=== PATIENT | male | born 1960 | race Caucasian/White ===

== ENCOUNTER 2017-03-05 04:02 | Emergency (ER) | payer SELFPAY ==
[~2017-03-05] VITALS: Ht 165.1 cm; Wt 79.0 kg
[~2017-03-05 04:02] MED LIST: ALBU1AER INH; OXYC-360 PO
[2017-03-05 04:10] VITALS: BP_SYST 100; BP_SYST 87; BP_DIAS 53; BP_DIAS 59; PULSE 103; PULSE 77; RESP 16; TEMP 98.8; O2SAT 93
[2017-03-05] MEDS ORDERED: SODIUM CHLOR 0.9% 1000 ML INJ 1,000 ML IV SCH (04:28)
[2017-03-05 04:30] VITALS: BP 103/64; PULSE 75; RESP 16
[2017-03-05] MEDS ORDERED: DICYCLOMINE HCL 20 MG/2 ML VIAL IM ONE (04:30)
[2017-03-05] MEDS ORDERED: ONDANSETRON HCL 4 MG/2 ML VIAL IVP ONE (04:30)
[2017-03-05] MEDS ORDERED: SODIUM CHLORIDE 0.9% FLUSH 10 ML FLUSH IV FLUSH PRN (04:30)
[2017-03-05 04:38] LABS: AUTOMATED NEUTROPHIL # 15.4 TH/MM3 (1.8-7.7); BASOPHIL # 0.3 TH/MM3 (0-0.2); BASOPHIL % 1.7 % (0.0-2.0); EOSINOPHIL # 0.1 TH/MM3 (0-0.4); EOSINOPHIL % 0.4 % (0.0-4.0); LYMPH % 9.4 % (9.0-44.0); LYMPHOCYTE # 1.8 TH/MM3 (1.0-4.8); MEAN CORPUSCULAR HEMOGLOBIN 28.7 PG (27.0-34.0); MEAN CORPUSCULAR HGB CONC 32.6 % (32.0-36.0); MONO % 9.4 % (0.0-8.0); NEUT % 79.1 % (16.0-70.0); PLATELET COUNT 225 TH/MM3 (150-450); RED BLOOD COUNT 5.34 MIL/MM3 (4.50-5.90); RED CELL DISTRIBUTION WIDTH 13.2 % (11.6-17.2); WHITE BLOOD COUNT 19.4 TH/MM3 (4.0-11.0)
[2017-03-05 04:39] LABS: HEMO FLAGS AUTO DIFF
[2017-03-05 04:47] LABS: CHLORIDE 108 MEQ/L (98-107); POTASSIUM 4.1 MEQ/L (3.5-5.1); SODIUM (NA) 141 MEQ/L (136-145)
[2017-03-05 04:51] LABS: ANION GAP 9 MEQ/L (5-15); BICARBONATE 24.2 MEQ/L (21.0-32.0); BLOOD UREA NITROGEN 15 MG/DL (7-18)
[2017-03-05 04:54] LABS: ALT (GPT) 33 U/L (12-78); AST (GOT) 17 U/L (15-37); GLOMERULAR FILTRATION RATE 69 ML/MIN (>89)
[2017-03-05 04:55] LABS: TOTAL BILIRUBIN ADULT 1.1 MG/DL (0.2-1.0)
[2017-03-05 04:56] LABS: BANDS 5 % (0-6); NEUTROPHIL # MANUAL DIFF 15.7 TH/MM3 (1.8-7.7); PLATELET ESTIMATE SMEAR NORMAL (NORMAL); PLATELET MORPHOLOGY NORMAL (NORMAL); POLYS (SEG NEUTROPHILS) 76 % (16-70); SCAN/DIFF FINAL DIFF MANUAL; WBC DIFF SAMPLE 100
[2017-03-05 04:57] LABS: ALKALINE PHOSPHATASE 92 U/L (45-117)
--- NOTE | 2017-03-05 04:58 | PD ---
HPI Chief Complaint: Abdominal Pain Time Seen by Provider: 04:17 Travel History International Travel<30 days: No Contact w/Intl Traveler<30days: No Traveled to known affect area: No History of Present Illness HPI Patient is a 57-year-old male with a history of pancreatitis presents emergency department with left upper quadrant abdominal pain for the past few days. Patient states been gradually worsening. He states they were on the boat the other day and he had some diarrhea which is nonbloody and non-melena's. States today's been having some nausea without vomiting, no fevers but did have some cold sweats. States she's never had pain like this before. No previous colonoscopy. Denies any dysuria, denies any groin swelling. He took some ibuprofen prior to arrival and his pain is subsiding. [facility] Past Medical History Asthma: Yes ?: Not Past Surgical History Other Surgery: Yes (HEERNIA REPAIR A CHILD) Social History Alcohol Use: Yes ([facility]) Tobacco Use: No Substance Use: No Allergies-Medications (Allergen,Severity, Reaction): Coded Allergies: No Known Allergies (Verified , 01/30/11) Reported Meds & Prescriptions Reported Meds & Active Scripts Active Zofran Odt (Ondansetron Odt) 4 Mg Tab 4 Mg SL Q6HR PRN Bentyl (Dicyclomine HCl) 10 Mg Cap 10 Mg PO QID PRN Flagyl (Metronidazole) 500 Mg Tab 500 Mg PO BID 7 Days Cipro (Ciprofloxacin HCl) 500 Mg Tab 500 Mg PO BID 7 Days Review of Systems Except as stated in HPI: all other systems reviewed are Neg Physical Exam Narrative GENERAL: Well-developed well-nourished no apparent distress. SKIN: Focused skin assessment warm/dry. HEAD: Atraumatic. Normocephalic. EYES: Pupils equal and round. No scleral icterus. No injection or drainage. ENT: No nasal bleeding or discharge. Mucous membranes pink and moist. NECK: Trachea midline. No JVD. CARDIOVASCULAR: Regular rate and rhythm. No murmur appreciated. RESPIRATORY: No accessory muscle use. Clear to auscultation. Breath sounds equal bilaterally. GASTROINTESTINAL: Abdomen soft, non-tender, nondistended. Hepatic and splenic margins not palpable. MUSCULOSKELETAL: No obvious deformities. No clubbing. No cyanosis. No edema. NEUROLOGICAL: Awake and alert. No obvious cranial nerve deficits. Motor grossly within normal limits. Normal speech. PSYCHIATRIC: Appropriate mood and affect; insight and judgment normal. Data Data Last Documented VS Vital Signs Date Time Temp Pulse Resp B/P Pulse Ox O2 Delivery O2 Flow Rate FiO2 03/05/17 06:26 87 16 98/54 99 03/05/17 04:10 98.8 Orders Complete Blood Count With Diff (03/05/17 04:28) Comprehensive Metabolic Panel (03/05/17 04:28) Lipase (03/05/17 04:28) Urinalysis - C+S If Indicated (03/05/17 04:28) Ct Abd/Pel W Iv Contrast(Rout) (03/05/17 04:28) Iv Access Insert/Monitor (03/05/17 04:28) Ecg Monitoring (03/05/17 04:28) Oximetry (03/05/17 04:28) Ondansetron Inj (Zofran Inj) (03/05/17 04:30) Sodium Chlor 0.9% 1000 Ml Inj (Ns 1000 M (03/05/17 04:28) Sodium Chloride 0.9% Flush (Ns Flush) (03/05/17 04:30) Dicyclomine Inj (Bentyl Inj) (03/05/17 04:30) Iohexol 350 Inj (Omnipaque 350 Inj) (03/05/17 05:02) Lactic Acid (03/05/17 05:36) Labs Laboratory Tests Test 03/05/17 03/05/17 04:30 05:45 White Blood Count 19.4 TH/MM3 Red Blood Count 5.34 MIL/MM3 Hemoglobin 15.3 GM/DL Hematocrit 47.0 % Mean Corpuscular Volume 88.0 FL Mean Corpuscular Hemoglobin 28.7 PG Mean Corpuscular Hemoglobin 32.6 % Concent Red Cell Distribution Width 13.2 % Platelet Count 225 TH/MM3 Mean Platelet Volume 7.1 FL Neutrophils (%) (Auto) 79.1 % Lymphocytes (%) (Auto) 9.4 % Monocytes (%) (Auto) 9.4 % Eosinophils (%) (Auto) 0.4 % Basophils (%) (Auto) 1.7 % Neutrophils # (Auto) 15.4 TH/MM3 Lymphocytes # (Auto) 1.8 TH/MM3 Monocytes # (Auto) 1.8 TH/MM3 Eosinophils # (Auto) 0.1 TH/MM3 Basophils # (Auto) 0.3 TH/MM3 CBC Comment AUTO DIFF Differential Total Cells 100 Counted Neutrophils % (Manual) 76 % Band Neutrophils % 5 % Lymphocytes % 10 % Monocytes % 9 % Neutrophils # (Manual) 15.7 TH/MM3 Differential Comment FINAL DIFF MANUAL Platelet Estimate NORMAL Platelet Morphology Comment NORMAL Red Cell Morphology Comment NORMAL Sodium Level 141 MEQ/L Potassium Level 4.1 MEQ/L Chloride Level 108 MEQ/L Carbon Dioxide Level 24.2 MEQ/L Anion Gap 9 MEQ/L Blood Urea Nitrogen 15 MG/DL Creatinine 1.10 MG/DL Estimat Glomerular Filtration 69 ML/MIN Rate Random Glucose 138 MG/DL Calcium Level 8.6 MG/DL Total Bilirubin 1.1 MG/DL Aspartate Amino Transf 17 U/L (AST/SGOT) Alanine Aminotransferase 33 U/L (ALT/SGPT) Alkaline Phosphatase 92 U/L Total Protein 6.9 GM/DL Albumin 3.6 GM/DL Lipase 176 U/L Lactic Acid Level 0.7 mmol/L [facility] Medical Decision Making Medical Screen Exam Complete: Yes Emergency Medical Condition: Yes Differential Diagnosis Diverticulitis, kidney stone seems less likely, diverticular abscess, localized perforation. Narrative Course Patient roomed in emergency primary, white blood cell count significant elevated to 19,000, CAT scan performed as is the patient's first onset of diverticulitis. CAT scan reading shows unconjugated diverticulitis: Last 24 hours Impressions Abdomen/Pelvis CT 03/05/17 0428 Signed Impressions: Service Date/Time: Sunday, March 05, 2017 04:43 - CONCLUSION: 1. Patient's symptoms appear to be due to an uncomplicated diverticulitis involving the junction of the descending and sigmoid colon. 2. Atrophic changes of the left kidney. 3. Left inguinal hernia which only contains fat. 4. Prostatic calcifications. Dalton Mayen MD Incidental findings were discussed the patient recommended following up with primary care provider. Patient vital signs showed minimal hypertension, maps are well within perfusable range. He appears well and in no obvious distress. Review of his last admission in 2010 shows that he was mildly hypotensive at that time. Lactic acid was ordered 0.7. Patient lactic acid resulted after a liter of fluid. He continues to appear well. Like to go home. I think is appropriate this time. Discussed need follow-up to rn interventional for colonoscopy symptomatic management home and returned ED criteria. Had extensive conversation regarding diverticulitis with the patient and all of his questions were answered. Diagnosis Primary Impression: Diverticulitis large intestine Qualified Code: K57.32 - Diverticulitis of large intestine without perforation or abscess without bleeding Med/Other Pt SpecificInfo: Prescription(s) given Scripts Ondansetron Odt (Zofran Odt)4 Mg Tab4 Mg SL Q6HR PRN (Nausea/Vomiting) #30 TAB Ref 0 Prov:Eloy Thakkar MD 03/05/17 Dicyclomine (Bentyl)10 Mg Cap10 Mg PO QID PRN (ABDOMINAL CRAMPING) #20 CAP Ref 0 Prov:Eloy Thakkar MD 03/05/17 Metronidazole (Flagyl)500 Mg [id number] Mg PO BID 7 Days Ref 0 Prov:Eloy Thakkar MD 03/05/17 Ciprofloxacin (Cipro)500 Mg [id number] Mg PO BID 7 Days Ref 0 Prov:Eloy Thakkar MD 03/05/17 Disposition: 01 DISCHARGE HOME Condition: Stable Eloy Thakkar MD Mar 05, 2017 04:57
[2017-03-05] MEDS ORDERED: IOHEXOL 350 MG/ML 10 ML VIAL (for RAD DIAG) IV ONE (05:02)
[2017-03-05 05:04] VITALS: BP_SYST 109; BP_SYST 99; BP_DIAS 58; BP_DIAS 59; PULSE 82
--- NOTE | 2017-03-05 05:32 | RADRPT ---
EXAM DATE/TIME: 03/05/2017 04:43 [facility] COMPARISON: No previous studies available for comparison. INDICATIONS : Left lower qaudrant pain. IV CONTRAST: 95 cc Omnipaque 350 (iohexol) IV ORAL CONTRAST: No oral contrast ingested. RADIATION DOSE: 15.09 CTDIvol (mGy) MEDICAL HISTORY : None SURGICAL HISTORY : None. ENCOUNTER: Initial ACUITY: 1 day PAIN SCALE: 8/10 LOCATION: Left lower quadrant TECHNIQUE: Volumetric scanning of the abdomen and pelvis was performed. Using automated exposure control and ad justment of the mA and/or kV according to patient size, radiation dose was kept as low as reasonably achievable to obtain optimal diagnostic quality images. DICOM format image data is available electro nically for review and comparison. FINDINGS: LOWER LUNGS: Linear atelectasis/scarring in the left lingula and dependently in the left base. No confluent infilt rate. LIVER: Homogeneous density without lesion. There is no dilation of the biliary tree. No calcified gallston es. SPLEEN: Normal size without lesion. PANCREAS: Within normal limits. KIDNEYS: Marked atrophic changes of the left kidney. ADRENAL GLANDS: Within normal limits. VASCULAR: There is no aortic aneurysm. BOWEL/MESENTERY: Diverticular disease of the sigmoid colon with pericolonic inflammatory changes at the junction of th e descending and sigmoid colon characteristic of an uncomplicated diverticulitis. ABDOMINAL WALL: Within normal limits. RETROPERITONEUM: There is no lymphadenopathy. BLADDER: No wall thickening or mass. REPRODUCTIVE: Prostatic calcifications. INGUINAL: 1.7 cm left inguinal hernia which only contains fat. MUSCULOSKELETAL: Within normal limits for patient age. CONCLUSION: 1. Patient's symptoms appear to be due to an uncomplicated diverticulitis involving the junction of t he descending and sigmoid colon. 2. Atrophic changes of the left kidney. 3. Left inguinal hernia which only contains fat. 4. Prostatic calcifications. Dalton Mayen MD on March 05, 2017 at 5:24 Board Certified Radiologist. This report was verified electronically.
[2017-03-05 05:37] VITALS: BP 92/51; PULSE 82; RESP 16; O2SAT 99
[2017-03-05] MEDS ORDERED: CIPR-9 PO (06:11)
[2017-03-05] MEDS ORDERED: DICY10 PO (06:11)
[2017-03-05] MEDS ORDERED: ZOFR4TAB3 SL (06:11)
[2017-03-05] MEDS ORDERED: METR-1 PO (06:11)
[2017-03-05 06:26] VITALS: BP 98/54
== END 2017-03-05 06:29 | disposition home or self-care (01) ==
LOC: PHED 04:02
DX: K57.32 Diverticulitis of large intestine without perforation or abscess without bleeding (principal); J45.909 Unspecified asthma, uncomplicated
CPT/HCPCS: 74177; 80053; 83605; 83690; 85007; 85027; 96361; 96372; 96374; 99284; J0500; J2405; J7030; Q9967

== ENCOUNTER 2017-03-06 18:12 | Inpatient (IN) | payer SELFPAY ==
[~2017-03-06] VITALS: Ht 165.1 cm; Wt 80.7 kg
[~2017-03-06 18:12] MED LIST changes: -ALBU1AER INH; +CIPR-9 PO; +DICY10 PO; +METR-1 PO; -OXYC-360 PO; +ZOFR4TAB3 SL
[2017-03-06 18:21] VITALS: BP 126/88; PULSE 111; RESP 16; TEMP 98.2; O2SAT 94
[2017-03-06 19:00] VITALS: BP 140/77; PULSE 87; RESP 17; O2SAT 99
[2017-03-06] MEDS ORDERED: SODIUM CHLOR 0.9% 1000 ML INJ 1,000 ML IV SCH (19:07)
--- NOTE | 2017-03-06 19:11 | PD ---
HPI Chief Complaint: Abdominal Pain Time Seen by Provider: 19:07 Travel History International Travel<30 days: No Contact w/Intl Traveler<30days: No Traveled to known affect area: No History of Present Illness HPI 57-year-old male with history of diagnosis of diverticulitis yesterday, had picked up his antibiotics, pain medications, but not his nausea medication, and return sooner to the ER today because he states that after he took 3 doses of antibiotics, he is not feeling well, has been nauseous, unable to take by mouth food or fluids because of severe nausea. He states he has not yet vomited. He denies any worsening abdominal pain. He complains of burping and increased abdominal distention. He denies any fevers or other new symptoms. Modifying Factors: None Associated Signs & Symptoms: Nausea, abdominal bloating Risk Factors: Recent diverticulitis, antibiotic use PFSH Past Medical History Hx Anticoagulant Therapy: No Asthma: Yes Diabetes: No Past Surgical History Other Surgery: Yes (HEERNIA REPAIR A CHILD) Social History Alcohol Use: Yes (OCC) Tobacco Use: No Substance Use: No Allergies-Medications (Allergen,Severity, Reaction): Coded Allergies: No Known Allergies (Verified , 03/06/17) Reported Meds & Prescriptions Reported Meds & Active Scripts Active Zofran Odt (Ondansetron Odt) 4 Mg Tab 4 Mg SL Q6HR PRN Bentyl (Dicyclomine HCl) 10 Mg Cap 10 Mg PO QID PRN Flagyl (Metronidazole) 500 Mg Tab 500 Mg PO BID 7 Days Cipro (Ciprofloxacin HCl) 500 Mg Tab 500 Mg PO BID 7 Days Review of Systems Except as stated in HPI: all other systems reviewed are Neg Physical Exam Narrative GENERAL: Well-developed elderly white male patient currently in mild distress. Awake and oriented 3. SKIN: Focused skin assessment warm/dry. HEAD: Atraumatic. Normocephalic. EYES: Pupils equal and round. No scleral icterus. No injection or drainage. ENT: No nasal bleeding or discharge. Mucous membranes pink and moist. NECK: Trachea midline. No JVD. CARDIOVASCULAR: Regular rate and rhythm. No murmur appreciated. RESPIRATORY: No accessory muscle use. Clear to auscultation. Breath sounds equal bilaterally. GASTROINTESTINAL: Abdomen soft, non-tender, mildly distended. Hepatic and splenic margins not palpable. MUSCULOSKELETAL: No obvious deformities. No clubbing. No cyanosis. No edema. NEUROLOGICAL: Awake and alert. No obvious cranial nerve deficits. Motor grossly within normal limits. Normal speech. PSYCHIATRIC: Appropriate mood and affect; insight and judgment normal. Data Data Last Documented VS Vital Signs Date Time Temp Pulse Resp B/P Pulse Ox O2 Delivery O2 Flow Rate FiO2 03/06/17 19:00 87 17 140/77 99 Room Air 03/06/17 18:21 98.2 Orders Complete Blood Count With Diff (03/06/17 19:07) Comprehensive Metabolic Panel (03/06/17 19:07) Lipase (03/06/17 19:07) Abdomen, Flat & Upright (03/06/17 ) Iv Access Insert/Monitor (03/06/17 19:07) Ecg Monitoring (03/06/17 19:07) Oximetry (03/06/17 19:07) Ondansetron Inj (Zofran Inj) (03/06/17 19:15) Sodium Chlor 0.9% 1000 Ml Inj (Ns 1000 M (03/06/17 19:07) Sodium Chloride 0.9% Flush (Ns Flush) (03/06/17 19:15) Labs Laboratory Tests Test 03/06/17 19:28 White Blood Count 15.8 TH/MM3 Red Blood Count 5.47 MIL/MM3 Hemoglobin 15.9 GM/DL Hematocrit 49.4 % Mean Corpuscular Volume 90.2 FL Mean Corpuscular Hemoglobin 29.0 PG Mean Corpuscular Hemoglobin 32.2 % Concent Red Cell Distribution Width 13.6 % Platelet Count 236 TH/MM3 Mean Platelet Volume 7.1 FL Neutrophils (%) (Auto) 84.2 % Lymphocytes (%) (Auto) 7.1 % Monocytes (%) (Auto) 7.9 % Eosinophils (%) (Auto) 0.2 % Basophils (%) (Auto) 0.6 % Neutrophils # (Auto) 13.4 TH/MM3 Lymphocytes # (Auto) 1.1 TH/MM3 Monocytes # (Auto) 1.2 TH/MM3 Eosinophils # (Auto) 0.0 TH/MM3 Basophils # (Auto) 0.1 TH/MM3 CBC Comment DIFF FINAL Differential Comment Sodium Level 142 MEQ/L Potassium Level 4.0 MEQ/L Chloride Level 107 MEQ/L Carbon Dioxide Level 25.7 MEQ/L Anion Gap 9 MEQ/L Blood Urea Nitrogen 17 MG/DL Creatinine 1.10 MG/DL Estimat Glomerular Filtration 69 ML/MIN Rate Random Glucose 125 MG/DL Calcium Level 9.2 MG/DL Total Bilirubin 0.7 MG/DL Aspartate Amino Transf 15 U/L (AST/SGOT) Alanine Aminotransferase 25 U/L (ALT/SGPT) Alkaline Phosphatase 85 U/L Total Protein 7.3 GM/DL Albumin 3.2 GM/DL Lipase 152 U/L MDM Medical Decision Making Medical Screen Exam Complete: Yes Emergency Medical Condition: Yes Medical Record Reviewed: Yes Interpretation(s) Laboratory Tests Test 03/06/17 19:28 White Blood Count 15.8 TH/MM3 (4.0-11.0) Neutrophils (%) (Auto) 84.2 % (16.0-70.0) Lymphocytes (%) (Auto) 7.1 % (9.0-44.0) Neutrophils # (Auto) 13.4 TH/MM3 (1.8-7.7) Monocytes # (Auto) 1.2 TH/MM3 (0-0.9) Estimat Glomerular Filtration 69 ML/MIN (>89) Rate Random Glucose 125 MG/DL (74-106) Albumin 3.2 GM/DL (3.4-5.0) Last 24 hours Impressions Abdomen X-Ray 03/06/17 0000 Signed Impressions: Service Date/Time: Monday, March 06, 2017 20:16 - CONCLUSION: Abnormal bowel gas pattern most consistent with an ileus. Tawanda Quiroz MD Differential Diagnosis Nausea, abdominal bloating, recent diverticulitisileus versus obstruction versus worsening diverticulitis versus dehydration versus metabolic issues Narrative Course X-rays shows ileus. Abdomen is otherwise benign and nontender. Lab work did not show significant dehydration or electrolyte abnormalities. At this point, patient was given IV fluids and Zofran. My plan would be to admit the patient as an observation for ileus. Case is discussed with Dr. Salinas for admission. Diagnosis Primary Impression: Ileus Additional Impression: Diverticulitis large intestine Admitting Information Admitting Physician Requests: it Marcelo West MD Mar 06, 2017 19:11
[2017-03-06] MEDS ORDERED: ONDANSETRON HCL 4 MG/2 ML VIAL IVP ONE (19:15)
[2017-03-06] MEDS ORDERED: SODIUM CHLORIDE 0.9% FLUSH 10 ML FLUSH IV FLUSH PRN ×2 (19:15→21:00)
[2017-03-06 19:41] LABS: AUTOMATED NEUTROPHIL # 13.4 TH/MM3 (1.8-7.7); BASOPHIL # 0.1 TH/MM3 (0-0.2); BASOPHIL % 0.6 % (0.0-2.0); EOSINOPHIL % 0.2 % (0.0-4.0); HEMATOCRIT 49.4 % (39.0-51.0); LYMPH % 7.1 % (9.0-44.0); LYMPHOCYTE # 1.1 TH/MM3 (1.0-4.8); MEAN CELL VOLUME 90.2 FL (80.0-100.0); MEAN CORPUSCULAR HGB CONC 32.2 % (32.0-36.0); MONO % 7.9 % (0.0-8.0); NEUT % 84.2 % (16.0-70.0); PLATELET COUNT 236 TH/MM3 (150-450); RED BLOOD COUNT 5.47 MIL/MM3 (4.50-5.90); RED CELL DISTRIBUTION WIDTH 13.6 % (11.6-17.2); WHITE BLOOD COUNT 15.8 TH/MM3 (4.0-11.0)
[2017-03-06 19:43] LABS: HEMO FLAGS DIFF FINAL
[2017-03-06 19:45] LABS: CHLORIDE 107 MEQ/L (98-107); SODIUM (NA) 142 MEQ/L (136-145)
[2017-03-06 19:49] LABS: ANION GAP 9 MEQ/L (5-15); BICARBONATE 25.7 MEQ/L (21.0-32.0); BLOOD UREA NITROGEN 17 MG/DL (7-18)
[2017-03-06 19:52] LABS: ALT (GPT) 25 U/L (12-78); AST (GOT) 15 U/L (15-37); GLOMERULAR FILTRATION RATE 69 ML/MIN (>89)
[2017-03-06 19:53] LABS: TOTAL BILIRUBIN ADULT 0.7 MG/DL (0.2-1.0)
[2017-03-06 19:55] LABS: ALKALINE PHOSPHATASE 85 U/L (45-117)
[2017-03-06 20:35] VITALS: BP 128/72; PULSE 100; RESP 17; O2SAT 97
--- NOTE | 2017-03-06 20:41 | RADRPT ---
EXAM DATE/TIME: 03/06/2017 20:16 [facility] COMPARISON: CT ABDOMEN & PELVIS W CONTRAST, March 05, 2017, 4:43. INDICATIONS : Abdominal pain. Known diverticulitis seen on CT.. MEDICAL HISTORY : None. SURGICAL HISTORY : None. ENCOUNTER: Initial ACUITY: 1 day PAIN SCORE: 8/10 LOCATION: Abdomen FINDINGS: 2 AP supine views the abdomen were obtained as well as an erect view. This demonstrates multiple loop s of borderline dilated air-containing small bowel with multiple air-fluid levels. Gas is noted segme nts of the colon with multiple air-fluid levels as well greatest in the right colon. There is no free air. There are no abnormal calcifications. There are multiple calcified phleboliths in the pelvis. CONCLUSION: Abnormal bowel gas pattern most consistent with an ileus. Tawanda Quiroz MD on March 06, 2017 at 20:38 Board Certified Radiologist. This report was verified electronically.
[2017-03-06] MEDS ORDERED: NALOXONE HCL 0.4 MG/ML AMP IV PRN (21:00)
[2017-03-06] MEDS ORDERED: BISACODYL 10 MG SUPP RECTAL PRN (21:00)
[2017-03-06] MEDS ORDERED: SENNOSIDES 8.6 MG TAB PO PRN (21:00)
[2017-03-06] MEDS ORDERED: MAGNESIUM HYDROXIDE SUSP 30 ML CUP PO PRN (21:00)
[2017-03-06] MEDS ORDERED: ACETAMINOPHEN 325 MG TAB PO PRN ×2 (21:00)
[2017-03-06] MEDS ORDERED: LACTULOSE SYRUP 20 GM/30 ML CUP PO PRN (21:00)
[2017-03-06] MEDS ORDERED: ONDANSETRON HCL 4 MG/2 ML VIAL IV PUSH ONE (21:15)
[2017-03-06 21:30] VITALS: BP 131/83; PULSE 96; RESP 16; O2SAT 98
[2017-03-06] MEDS: NS + KCL 20 MEQ INJ 1,000 ML IV SCH ×2 (21:33→22:06)
[2017-03-06] MEDS: SODIUM CHLORIDE 0.9% FLUSH 10 ML FLUSH IV FLUSH SCH (21:33)
[2017-03-06] MEDS: CIPROFLOXACIN 400 MG PREMIX 200 ML IV SCH (21:46)
[2017-03-06] MEDS ORDERED: MORPHINE SULFATE 8 MG/ML INJ IV PUSH PRN ×2 (22:00)
[2017-03-06 22:51] VITALS: BP 107/73; TEMP 98.8
[2017-03-07 00:05] VITALS: BP 129/78; PULSE 84; RESP 16; TEMP 97.1; O2SAT 94
[2017-03-07] MEDS: metroNIDAZOLE 500 MG INJ 100 ML IV SCH ×3 (00:27→17:06)
[2017-03-07] MEDS: ONDANSETRON HCL 4 MG/2 ML VIAL IVP PRN ×2 (04:31→20:49)
[2017-03-07 06:45] LABS: AUTOMATED NEUTROPHIL # 10.9 TH/MM3 (1.8-7.7); BASOPHIL # 0.4 TH/MM3 (0-0.2); BASOPHIL % 2.8 % (0.0-2.0); EOSINOPHIL # 0.1 TH/MM3 (0-0.4); EOSINOPHIL % 0.8 % (0.0-4.0); LYMPHOCYTE # 1.6 TH/MM3 (1.0-4.8); MEAN CORPUSCULAR HEMOGLOBIN 29.1 PG (27.0-34.0); MONO % 9.7 % (0.0-8.0); NEUT % 75.7 % (16.0-70.0); PLATELET COUNT 257 TH/MM3 (150-450); RED BLOOD COUNT 5.06 MIL/MM3 (4.50-5.90); WHITE BLOOD COUNT 14.4 TH/MM3 (4.0-11.0)
[2017-03-07 06:56] LABS: HEMO FLAGS DIFF FINAL
[2017-03-07 08:00] VITALS: BP 138/86; PULSE 94; RESP 18; TEMP 98; O2SAT 94
[2017-03-07] MEDS: SODIUM CHLORIDE 0.9% FLUSH 10 ML FLUSH IV FLUSH SCH ×2 (09:03→20:44)
[2017-03-07] MEDS: CIPROFLOXACIN 400 MG PREMIX 200 ML IV SCH ×2 (09:08→20:43)
--- NOTE | 2017-03-07 10:16 | HHI.HP ---
[facility] Service [facility] Primary Care Physician No Primary Care Physician Admission Diagnosis ileus/diverticulitis Diagnoses: (1) Sepsis Diagnosis: Principal (2) Ileus Diagnosis: Principal (3) Diverticulitis large intestine Diagnosis: Principal (4) Nausea Chief Complaint: Nausea Travel History International Travel<30 Days: No Contact w/Intl Traveler <30 Da: No Traveled to Known Affected Are: No Sepsis Criteria SIRS Criteria (2 or more): Heart rate over 90, WBC > 34864, < 4000 or > 10% bands Sepsis Criteria (SIRS+source): Infect source susp/known Criteria Outcome: Meets sepsis criteria History of Present Illness Written by Rashaad Thornton, acting as scribe for Dr. Contreras on 03/07/17 at 13:37. 57 year-old male with rather unremarkable past medical history presented to the hospital initially because of abdominal pain. Patient indicates that he started developing left lower quadrant abdominal pain on Wednesday of last week. The pain progressively got worse until he came to the hospital on Wednesday. Patient had workup done emergency department found to have uncomplicated diverticulitis. Patient was given prescription for Zofran, Bentyl , Flagyl, Cipro. The patient left in filled the prescriptions at a pharmacy. He was notified by pharmacist that he should timeout the antibiotics not to take together because it can cause significant GI upset. Patient did exactly that he was taken the pills apart from each other, however he started developing significant abdominal bloating, distention, severe nausea. He indicates that her daughter contacted the ER multiple time concerning his new abdominal discomfort. Patient states that the discomfort was so bad that he came back to the hospital. Patient had another evaluation done with a KUB which does show ileus. Because of reasons is recommended patient be admitted for further evaluation management. Patient states that he had a significant episode of vomiting in the hospital and his abdominal discomfort was symmetrically improved. Patient has not been passing any gas and has not had a bowel movement since yesterday morning. At the time evaluating the patient he is still having some mild left lower quadrant abdominal pain. He has not had any recurrent nausea or vomiting. His abdominal distention is much improved. He has not had a bowel movement, melena or hematochezia. Review of Systems Gastrointestinal: COMPLAINS OF: Abdominal pain, Nausea, Vomiting Except as stated in HPI: all other systems reviewed are Neg Past Family Social History Past Medical History Asthma History of pancreatitis Past Surgical History Hernia repair Reported Medications Reported Meds & Active Scripts Active Zofran Odt (Ondansetron Odt) 4 Mg Tab 4 Mg SL Q6HR PRN Bentyl (Dicyclomine HCl) 10 Mg Cap 10 Mg PO QID PRN Flagyl (Metronidazole) 500 Mg Tab 500 Mg PO BID 7 Days Cipro (Ciprofloxacin HCl) 500 Mg Tab 500 Mg PO BID 7 Days Allergies: Coded Allergies: No Known Allergies (Verified , 03/06/17) Family History Reviewed is significant for heart disease, diabetes Social History Patient denies any tobacco or illicit drugs. Does drink alcohol occasionally. Physical Exam Vital Signs Vital Signs Date Time Temp Pulse Resp B/P Pulse Ox O2 Delivery O2 Flow Rate FiO2 03/07/17 08:00 98.0 94 18 138/86 94 03/07/17 00:05 97.1 84 16 129/78 94 03/06/17 22:51 98.8 98 17 107/73 98 03/06/17 22:11 17 03/06/17 21:30 96 16 131/83 98 Room Air 03/06/17 20:35 100 17 128/72 97 Room Air 03/06/17 19:00 87 17 140/77 99 Room Air 03/06/17 18:21 98.2 111 16 126/88 94 Physical Exam GENERAL: Well-developed, well-nourished, in no acute distress. alert and orientated HEENT: Head is normocephalic without any lesions or masses noted. Facial features are symmetric. Eyes: Pupils equal round reactive to light. Extraocular muscles are intact. Conjunctivae were clear. Oropharyngeal: Pharynx without any erythema edema. Tongue is midline without deviation. Buccal mucosa is moist without any masses or lesions NECK: Supple without any masses. Trachea midline no deviation. No JVD, no bruits are appreciated CARDIAC: Regular rhythm, regular rate. S1/S2 are heard. No murmurs gallops or rubs. LUNGS: Clear to auscultation bilaterally. No wheeze, rhonchi or rales. No use of accessory muscles on inspiration or expiration. ABDOMEN: Soft, moderate left lower quadrant tenderness on direct palpation. Nondistended. Bowel sounds heard in all 4 quadrants. No organomegaly or masses. Negative rebound, negative guarding EXTREMITIES: No edema, pulses are equal bilaterally. No cyanosis or clubbing NEUROLOGY: Mood and affect appear appropriate. Cranial nerves II through XII grossly intact. Muscle strength 5/5 in upper and lower extremities bilaterally. Deep tendon reflexes are 2+ in upper and lower extremities bilaterally. Laboratory Laboratory Tests Test 03/06/17 03/07/17 19:28 06:33 White Blood Count 15.8 14.4 Red Blood Count 5.47 5.06 Hemoglobin 15.9 14.7 Hematocrit 49.4 46.0 Mean Corpuscular Volume 90.2 91.0 Mean Corpuscular Hemoglobin 29.0 29.1 Mean Corpuscular Hemoglobin 32.2 32.0 Concent Red Cell Distribution Width 13.6 14.0 Platelet Count 236 257 Mean Platelet Volume 7.1 7.1 Neutrophils (%) (Auto) 84.2 75.7 Lymphocytes (%) (Auto) 7.1 11.0 Monocytes (%) (Auto) 7.9 9.7 Eosinophils (%) (Auto) 0.2 0.8 Basophils (%) (Auto) 0.6 2.8 Neutrophils # (Auto) 13.4 10.9 Lymphocytes # (Auto) 1.1 1.6 Monocytes # (Auto) 1.2 1.4 Eosinophils # (Auto) 0.0 0.1 Basophils # (Auto) 0.1 0.4 CBC Comment DIFF FINAL DIFF FINAL Differential Comment Sodium Level 142 143 Potassium Level 4.0 4.0 Chloride Level 107 111 Carbon Dioxide Level 25.7 25.0 Anion Gap 9 7 Blood Urea Nitrogen 17 17 Creatinine 1.10 0.92 Estimat Glomerular Filtration 69 84 Rate Random Glucose 125 117 Calcium Level 9.2 8.6 Total Bilirubin 0.7 Aspartate Amino Transf 15 (AST/SGOT) Alanine Aminotransferase 25 (ALT/SGPT) Alkaline Phosphatase 85 Total Protein 7.3 Albumin 3.2 Lipase 152 Result Diagram: 03/07/17 0633 03/07/17 0633 Imaging Last Impressions Abdomen X-Ray 03/06/17 0000 Signed Impressions: Service Date/Time: Monday, March 06, 2017 20:16 - CONCLUSION: Abnormal bowel gas pattern most consistent with an ileus. Tawanda Quiroz MD Septic Shock Reassessment Heart: Regular rate and rhythm Lungs: Clear Skin: Warm, Moist Peripheral Pulses: Bounding Right Radial Bounding Left Radial Capillary Refill: Brisk, <2 seconds Assessment and Plan Problem List: (1) Sepsis ICD Code: A41.9 Status: Acute Plan: Patient met criteria on admission with leukocytosis, tachycardia, diverticulitis Patient on empirical antibiotics include Cipro and Flagyl Check blood cultures Continue monitor for further signs of infection (2) Ileus ICD Code: K56.7 Status: Acute Plan: Abdominal imaging indicates abnormal bowel gas pattern most consistent with an ileus Continue monitor patient's condition, bowel movements Patient is nothing by mouth at this time Continue IV fluids Obtain CT scan of the abdomen and pelvis due to patient having sepsis, diverticulitis and new symptoms on presentation. Could be worsening of diverticulitis, bowel obstruction. (3) Diverticulitis large intestine ICD Code: K57.32 Status: Acute Plan: CT scan with uncomplicated diverticulitis Continue Cipro and Flagyl (4) Hyperglycemia ICD Code: R73.9 Status: Acute Plan: Check hemoglobin A1c. Monitor Accu-Cheks and place on SSI with insulin NovoLog. Assessment and Plan DVT prevention Sequential compression devices This note was transcribed by adelita Thornton. I, Dr. Kit Dunbar personally performed the history, physical exam, and medical decision making; and confirmed the accuracy of the information in the transcribed note. Authenticated by Dr. Kit Dunbar on 03/07/17 at 13:55. Problem Qualifiers (1) Sepsis: Qualified Code: A41.9 - Sepsis, due to unspecified organism (2) Diverticulitis large intestine: Qualified Code: K57.32 - Diverticulitis of large intestine without perforation or abscess without bleeding Rashaad Thornton Mar 07, 2017 10:16 Kit Horn MD Mar 07, 2017 15:04
[2017-03-07 12:00] VITALS: BP 133/79; PULSE 90; RESP 19; TEMP 97.9; O2SAT 98
[2017-03-07] MEDS: ALUMINUM/MAGNESIUM/SIMETH 30 ML CUP PO PRN ×2 (12:58→20:42)
[2017-03-07] MEDS: NS + KCL 20 MEQ INJ 1,000 ML IV SCH ×2 (13:04→20:43)
[2017-03-07] MEDS ORDERED: DIATRIZOATE MEGLUM/DIATRIZOATE SOD 9 ML CUP PO ONE (14:30)
[2017-03-07 16:00] VITALS: BP 143/92; PULSE 101; RESP 19; TEMP 98; O2SAT 95
[2017-03-07] MEDS: ENOXAPARIN SODIUM 40 MG/0.4 ML SYRINGE SQ SCH ×2 (16:00→17:06)
--- NOTE | 2017-03-07 18:13 | RADRPT ---
EXAM DATE/TIME: 03/07/2017 17:40 [facility] COMPARISON: No previous studies available for comparison. INDICATIONS : Lower abdominal distention. ORAL CONTRAST: Prescribed oral contrast ingested. RADIATION DOSE: 17.50 CTDIvol (mGy) MEDICAL HISTORY : None SURGICAL HISTORY : None. ENCOUNTER: Initial ACUITY: 2 days PAIN SCALE: 4/10 LOCATION: lower quadrant TECHNIQUE: Volumetric scanning of the abdomen and pelvis was performed. Using automated exposure control and ad justment of the mA and/or kV according to patient size, radiation dose was kept as low as reasonably achievable to obtain optimal diagnostic quality images. DICOM format image data is available electro nically for review and comparison. FINDINGS: LOWER LUNGS: Very small right-sided effusion with minimal atelectatic changes. One bases are otherwise clear LIVER: Homogeneous density without lesion. There is no dilation of the biliary tree. No calcified gallston es. SPLEEN: Normal size without lesion. PANCREAS: Within normal limits. KIDNEYS: Atrophic changes of the left kidney possibly representing vascular compromise. ADRENAL GLANDS: Within normal limits. VASCULAR: There is no aortic aneurysm. BOWEL/MESENTERY: Diverticular disease of the descending and sigmoid colon with pericolonic stranding at the junction o f the descending colon characteristic of an uncomplicated diverticulitis. There is diffuse distention of small bowel loops with relative sparing of the terminal ileum probably representing a hypodynamic ileus associated with the acute inflammatory process in the left lower quadrant ABDOMINAL WALL: Within normal limits. RETROPERITONEUM: There is no lymphadenopathy. BLADDER: No wall thickening or mass. REPRODUCTIVE: Prostatic calcifications. INGUINAL: 1.9 cm left inguinal hernia only containing fat. MUSCULOSKELETAL: Within normal limits for patient age. CONCLUSION: 1. Patient's symptoms appear to be due to an uncomplicated diverticulitis of the junction of the desc ending and sigmoid colon. Diverticula disease is seen throughout this region. 2. Diffuse distention of small bowel loops with relative sparing of the terminal ileum probably repre senting a hypodynamic ileus associated with intracranial inflammatory changes. 3. Atrophic changes of the left kidney characteristic of vascular compromise. 4. Very tiny right-sided effusion with concomitant atelectatic changes. 5. Small 1.9 cm left inguinal hernia only contains fat . Dalton Mayen MD on March 07, 2017 at 18:05 Board Certified Radiologist. This report was verified electronically.
[2017-03-07 20:52] VITALS: BP 143/91; PULSE 96; RESP 18; TEMP 99.3; O2SAT 95
[2017-03-08] MEDS: metroNIDAZOLE 500 MG INJ 100 ML IV SCH ×3 (00:09→16:00)
[2017-03-08 00:30] VITALS: BP 123/75; PULSE 82; RESP 16; TEMP 98.4; O2SAT 93
[2017-03-08 05:45] LABS: AUTOMATED NEUTROPHIL # 6.8 TH/MM3 (1.8-7.7); BASOPHIL % 0.4 % (0.0-2.0); EOSINOPHIL # 0.2 TH/MM3 (0-0.4); EOSINOPHIL % 1.9 % (0.0-4.0); HEMATOCRIT 41.2 % (39.0-51.0); HEMO FLAGS DIFF FINAL; LYMPH % 16.6 % (9.0-44.0); LYMPHOCYTE # 1.6 TH/MM3 (1.0-4.8); MEAN CELL VOLUME 88.3 FL (80.0-100.0); MEAN CORPUSCULAR HEMOGLOBIN 29.1 PG (27.0-34.0); MONO % 10.1 % (0.0-8.0); PLATELET COUNT 238 TH/MM3 (150-450); RED BLOOD COUNT 4.67 MIL/MM3 (4.50-5.90); RED CELL DISTRIBUTION WIDTH 13.3 % (11.6-17.2); WHITE BLOOD COUNT 9.6 TH/MM3 (4.0-11.0)
[2017-03-08 05:51] LABS: POTASSIUM 3.8 MEQ/L (3.5-5.1)
[2017-03-08 05:56] LABS: MAGNESIUM 2.1 MG/DL (1.5-2.5)
[2017-03-08 08:00] VITALS: BP 121/78; PULSE 79; RESP 17; TEMP 98.9; O2SAT 95
[2017-03-08] MEDS: SODIUM CHLORIDE 0.9% FLUSH 10 ML FLUSH IV FLUSH SCH (09:52)
[2017-03-08] MEDS: CIPROFLOXACIN 400 MG PREMIX 200 ML IV SCH (09:59)
[2017-03-08 12:00] VITALS: BP 120/79; PULSE 86; RESP 17; TEMP 98; O2SAT 96
--- NOTE | 2017-03-08 12:14 | HHI.PR ---
Subjective Remarks Patient states had several loose stools overnight Abdominal pain has resolved denies fevers/chills denies nausea/vomiting feels hungry Objective Vitals Vital Signs Date Time Temp Pulse Resp B/P Pulse Ox O2 Delivery O2 Flow Rate FiO2 03/08/17 08:00 98.9 79 17 121/78 95 03/08/17 04:16 03/08/17 00:30 98.4 82 16 123/75 93 03/07/17 20:52 99.3 96 18 143/91 95 03/07/17 16:00 98.0 101 19 143/92 95 I/O 03/07/17 03/07/17 03/07/17 03/08/17 03/08/17 03/08/17 06:59 14:59 22:59 06:59 14:59 22:59 Intake Total 1199 ml 479 ml 810 ml Output Total 200 ml Balance 999 ml 479 ml 810 ml Intake IV Total 1199 ml 479 ml 810 ml Output Urine Total 200 ml # Voids 1 1 # Bowel Movements 2 1 Result Diagram: 03/08/17 0440 03/08/17 0440 Imaging Last Impressions Abdomen/Pelvis CT 03/07/17 0000 Signed Impressions: Service Date/Time: Tuesday, March 07, 2017 17:40 - CONCLUSION: 1. Patient's symptoms appear to be due to an uncomplicated diverticulitis of the junction of the descending and sigmoid colon. Diverticula disease is seen throughout this region. 2. Diffuse distention of small bowel loops with relative sparing of the terminal ileum probably representing a hypodynamic ileus associated with intracranial inflammatory changes. 3. Atrophic changes of the left kidney characteristic of vascular compromise. 4. Very tiny right-sided effusion with concomitant atelectatic changes. 5. Small 1.9 cm left inguinal hernia only contains fat . Dalton Mayen MD Abdomen X-Ray 03/06/17 0000 Signed Impressions: Service Date/Time: Monday, March 06, 2017 20:16 - CONCLUSION: Abnormal bowel gas pattern most consistent with an ileus. Tawanda Quiroz MD Objective Remarks AAOx3 Abdomen soft, non tender, still mildly distended with positive bowel sounds. Procedures none Medications and IVs Current Medications Medications (Trade) Dose Ordered Sig/German Route Start Time Stop Time Status Last Admin (NS Flush) 2 ml UNSCH PRN IV FLUSH 03/06/17 21:00 (NS Flush) 2 ml BID IV FLUSH 03/06/17 21:00 03/08/17 09:52 (Tylenol) 650 mg Q4H PRN PO 03/06/17 21:00 (Zofran Inj) 4 mg Q6H PRN IVP 03/06/17 21:00 03/07/17 20:49 (Tylenol) 650 mg Q6H PRN PO 03/06/17 21:00 (Morphine Inj) 2 mg Q3H PRN IV PUSH 03/06/17 22:00 (Morphine Inj) 4 mg Q3H PRN IV PUSH 03/06/17 22:00 03/06/17 22:06 (Narcan Inj) 0.4 mg UNSCH PRN IV 03/06/17 21:00 (Milk Of Magnesia Liq) 30 ml Q12H PRN PO 03/06/17 21:00 03/07/17 13:03 (Senokot) 17.2 mg Q12H PRN PO 03/06/17 21:00 (Dulcolax Supp) 10 mg DAILY PRN RECTAL 03/06/17 21:00 Lactulose 30 ml 30 ml DAILY PRN PO 03/06/17 21:00 03/07/17 13:03 Ciprofloxacin/ Dextrose 200 ml @ 200 mls/hr Q12H IV 03/06/17 22:00 03/08/17 09:59 Metronidazole 100 ml @ 100 mls/hr Q8H IV 03/07/17 00:00 03/08/17 09:55 (NS + KCl 20 Meq Inj) 1,000 ml @ 75 mls/hr [id number] IV 03/06/17 21:00 03/07/17 20:43 (Mag-Al Plus Susp Liq) 30 ml Q6H PRN PO 03/07/17 11:45 03/07/17 20:42 (Lovenox Inj) 40 mg Q24H SQ 03/07/17 16:00 Urinary Catheter: No Vascular Central Line Catheter: No A/P Problem List: (1) Sepsis ICD Code: A41.9 Status: Acute Plan: Patient met criteria on admission with leukocytosis, tachycardia, diverticulitis Patient on empirical antibiotics include Cipro and Flagyl Blood cultures negative to date. afebrile (2) Ileus ICD Code: K56.7 Status: Acute Plan: Abdominal imaging indicates abnormal bowel gas pattern most consistent with an ileus, the patient was admitted to the medical floor given ileus and inability to keep fluids and foot at home. Treated supportively with IV fluids and given bowel rest with nothing by mouth diet. 03/08 CT abdomen and pelvis obtained on 03/07 shows unconjugated diverticulitis and ileus. There is no perforation or free air reported. Continue IV antibiotics, will start the patient on a full liquid diet and if he does well then will advance it to soft for dinner after which if the patient tolerates it well he may be discharged home. (3) Diverticulitis large intestine ICD Code: K57.32 Status: Acute Plan: CT scan with uncomplicated diverticulitis Continue Cipro and Flagyl (4) Hyperglycemia ICD Code: R73.9 Status: Acute Plan: Check hemoglobin A1c. Monitor Accu-Cheks and place on SSI with insulin NovoLog. Blood sugars are stable. Assessment and Plan DVT proph: SCD's, Lovenox SQ Problem Qualifiers (1) Sepsis: Qualified Code: A41.9 - Sepsis, due to unspecified organism (2) Diverticulitis large intestine: Qualified Code: K57.32 - Diverticulitis of large intestine without perforation or abscess without bleeding Kit Horn MD Mar 08, 2017 12:14
[2017-03-08 16:00] VITALS: BP 122/82; PULSE 103; RESP 17; TEMP 98; O2SAT 95
[2017-03-08] MEDS: ENOXAPARIN SODIUM 40 MG/0.4 ML SYRINGE SQ SCH (16:00)
--- NOTE | 2017-03-08 16:15 | RADRPT ---
EXAM DATE/TIME: 03/08/2017 15:36 [facility] COMPARISON: ABDOMEN FLAT & UPRIGHT, March 06, 2017, 20:16. INDICATIONS : Evaluate for ileus. MEDICAL HISTORY : None. SURGICAL HISTORY : None. ENCOUNTER: Subsequent ACUITY: 2 days PAIN SCORE: 0/10 LOCATION: abdomen, all quadrants. FINDINGS: The bowel gas is nonspecific. There are no signs of obstruction or free air for technique. No defini te calcified stones are identified for technique. CONCLUSION: Nonspecific abdomen. Martin Hoffman MD on March 08, 2017 at 15:59 Board Certified Radiologist. This report was verified electronically.
[2017-03-08 17:06] LABS: HEMOGLOBIN A1a 2.2 %; HEMOGLOBIN A1b 0.9 %; HEMOGLOBIN Ao 83.6 %; HEMOGLOBIN F 0.9 %; HEMOGLOBIN LA1C 1.8 %; HEMOGLOBIN P3 3.9 %
[2017-03-08] MEDS ORDERED: METR500T10 PO (20:27)
--- NOTE | 2017-03-08 20:30 | HHI.DCPOC ---
Discharge Care Plan Diagnosis: (1) Diverticulitis large intestine Additional Problems Diverticulitis Goals to Promote Your Health * To prevent worsening of your condition and complications * To maintain your health at the optimal level Directions to Meet Your Goals Take your medications as prescribed Follow your dietary instruction Follow activity as directed Keep your appointments as scheduled Take your immunizations and boosters as scheduled If your symptoms worsen call your PCP, if no PCP go to Urgent Care Center or Emergency Room Smoking is Dangerous to Your Health. Avoid second hand smoke Call the 24-hour hour crisis hotline for domestic abuse at Tanesha Snyder Mar 08, 2017 20:30
[2017-03-08] MEDS ORDERED: CIPROFLOXACIN 500 MG TAB PO ONE (21:00)
== END 2017-03-08 21:17 | disposition home or self-care (01) | DRG 872 ==
LOC: PHED 18:12 → PHEDA 20:59 → PH3B 22:53 → OBSVTOIN 03-07 15:58
PROVIDERS: ADMIT Hospitalist; ATTEND Hospitalist
DX: A41.9 Sepsis, unspecified organism (principal); K56.7 Ileus, unspecified; K57.32 Diverticulitis of large intestine without perforation or abscess without bleeding; R73.9 Hyperglycemia, unspecified
CPT/HCPCS: 74000; 74020; 74176; 80048; 80053; 83036; 83690; 83735; 85025; 87040; 96361; 96374; G0378; J0744; J1650; J2270; J2405; J3480; J7030; Q9963